=== PATIENT | female | born 1955 | race Caucasian/White ===

== ENCOUNTER 2017-05-04 10:16 | Emergency (ER) | payer MEDICARE, MEDICAID ==
[~2017-05-04] VITALS: Ht 162.6 cm; Wt 68.0 kg
[~2017-05-04 10:16] MED LIST: ACETAMINOPHEN-1 EAC1 ORAL; AMBIEN5 MG ORAL; ATIVAN1 MG ORAL; IRON325 M1 PO; KLONOPIN0.5 MG ORAL; LEVAQUIN750 MG ORAL; LORAZEPAM1 MG ORAL; MACROBID100 MG ORAL; MACRODANTIN100 MG ORAL; MIRALAX17 G2 ORAL; NITROFURANTOIN100 M2 ORAL; NORCO 10/3251 EA ORAL; NORCO1 EA ORAL; POTASSIUM CHLO10 MEQ ORAL; SOMA350 MG PO; UNOBMED; VITAMIN D400 INTLU ORAL; ZOFRAN4 MG ORAL
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
[2017-05-04 12:07] VITALS: BP 119/67
[2017-05-04 12:37] LABS: BASOPHILS % (AUTO) 0.5 % (0.0-2.0); EOSINOPHILS % (AUTO) 3.2 % (0.0-3.0); HEMOGLOBIN 12.2 G/DL (12.0-16.0); LYMPHOCYTES % (AUTO) 14.9 % (20.0-45.0); MEAN CORPUSCULAR VOLUME 86 FL (80-99); MONOCYTES % (AUTO) 7.3 % (1.0-10.0); NEUTROPHILS % (AUTO) 74.1 % (45.0-75.0); PLATELET COUNT 347 K/UL (150-450); RED BLOOD COUNT 4.41 M/UL (4.20-5.40); RED CELL DISTRIBUTION WIDTH 12.8 % (11.6-14.8); WHITE BLOOD COUNT 6.5 K/UL (4.8-10.8)
[2017-05-04 12:40] LABS: ANION GAP 10 mmol/L (5-15); BLOOD UREA NITROGEN 11 mg/dL (7-18); CALCIUM 9.3 MG/DL (8.5-10.1); CARBON DIOXIDE 24 MMOL/L (21-32); CHLORIDE 109 MMOL/L (98-107); CREATININE 0.5 MG/DL (0.55-1.30); SODIUM 143 MMOL/L (136-145)
[2017-05-04 12:45] LABS: ALANINE AMINOTRANSFERASE 81 U/L (12-78); ALBUMIN 3.8 G/DL (3.4-5.0); ALBUMIN/GLOBULIN RATIO 0.9 (1.0-2.7); ALKALINE PHOSPHATASE 118 U/L (46-116); ASPARTATE AMINO TRANSFERASE 68 U/L (15-37); BILIRUBIN,TOTAL 0.4 MG/DL (0.2-1.0)
[2017-05-04 14:41] VITALS: BP 119/67
--- NOTE | 2017-05-05 14:55 | Cardiology Report ---
APPROVED REPORT EKG Measurement Heart [id number] Normal sinus rhythm Low voltage QRS Borderline ECG
== END 2017-05-04 14:42 | disposition home or self-care (01) ==
LOC: EDBD 10:16 → EMR 10:55
DX: R10.84 Generalized abdominal pain (principal); Z88.6 Allergy status to analgesic agent; Z88.0 Allergy status to penicillin; Z88.2 Allergy status to sulfonamides
CPT/HCPCS: 36415; 80053; 83690; 85025; 93005; 96374; 99284; S0028